=== PATIENT | female | born 1975 | race Caucasian/White ===

== ENCOUNTER 2017-02-12 10:31 | Emergency (ER) | payer OTHER, BC ==
[2017-02-12] MEDS ORDERED: KETOROLAC 60 MG/2 ML VIAL IM STA (11:51)
[2017-02-12] MEDS ORDERED: DEXAMETHASONE 10 MG/ML VIAL PO STA ×2 (11:51→13:46)
[2017-02-12] MEDS ORDERED: KETOROLAC 60 MG/2 ML VIAL ONE (12:03)
[2017-02-12] MEDS ORDERED: DEXAMETHASONE 10 MG/ML VIAL ONE (12:03)
[2017-02-12] MEDS ORDERED: CHERRY SYRUP 10 ML UDC PO ONE (12:04)
[2017-02-12] MEDS ORDERED: ONDANSETRON ODT 4 MG TABLET ONE (12:11)
[2017-02-12] MEDS ORDERED: ONDANSETRON ODT 4 MG TABLET TL STA (12:45)
== END 2017-02-12 13:02 | disposition home or self-care (01) ==
DX: M54.12 Radiculopathy, cervical region (principal); Z87.891 Personal history of nicotine dependence
CPT/HCPCS: 96372; 99282; 99283; A9270; Q0162

== ENCOUNTER 2017-02-14 10:11 | Emergency (ER) | payer OTHER, BC ==
[2017-02-14] MEDS ORDERED: KETOROLAC 60 MG/2 ML VIAL IM STA (13:21)
[2017-02-14] MEDS ORDERED: KETOROLAC 60 MG/2 ML VIAL ONE (13:22)
[2017-02-14] MEDS ORDERED: DEXAMETHASONE 10 MG/ML VIAL PO STA (13:45)
[2017-02-14] MEDS ORDERED: CHERRY SYRUP 10 ML UDC PO ONE (13:50)
[2017-02-14] MEDS ORDERED: DEXAMETHASONE 10 MG/ML VIAL ONE (13:50)
[2017-02-14] MEDS ORDERED: oxyCOD/ACETAMIN 5 MG/325 MG TABLET PO STA ×2 (16:13→19:37)
[2017-02-14] MEDS ORDERED: oxyCOD/ACETAMIN 5 MG/325 MG TABLET PO ONE (16:15)
[2017-02-14] MEDS ORDERED: oxyCODONE 5 MG TABLET PO STA (20:10)
[2017-02-14] MEDS ORDERED: oxyCODONE 5 MG TABLET ONE (20:12)
== END 2017-02-14 22:32 | disposition short-term general hospital (02) ==
DX: M50.123 Cervical disc disorder at C6-C7 level with radiculopathy (principal); Z87.891 Personal history of nicotine dependence
CPT/HCPCS: 72141; 96372; 99284; 99285; A9270

== ENCOUNTER 2017-02-14 22:35 | Outpatient (CLI) | payer OTHER, BC | END 2017-02-14 22:36 | disposition short-term general hospital (02) | DX: M54.12 Radiculopathy, cervical region (principal) | CPT/HCPCS: A0425; A0428 ==

== ENCOUNTER 2017-08-23 10:47 | Outpatient (CLI) | payer OTHER, BC | END 2017-08-23 10:48 | disposition EMS.NT | LOC: EMS 10:47 | PROVIDERS: ATTEND Surgery | DX: M54.2 Cervicalgia (principal); V49.40XA Driver injured in collision with unspecified motor vehicles in traffic accident, initial encounter; Y92.413 State road as the place of occurrence of the external cause ==

== ENCOUNTER 2017-08-23 12:46 | Emergency (ER) | payer OTHER, BC ==
[2017-08-23] MEDS ORDERED: oxyCOD/ACETAMIN 5 MG/325 MG TABLET PO STA (13:07)
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
[2017-08-23] MEDS ORDERED: oxyCOD/ACETAMIN 5 MG/325 MG TABLET PO ONE (13:36)
--- NOTE | 2017-08-23 14:06 | CT Preliminary Report ---
Exam: CT Cervical Spine W/O IMPRESSION: 1. Postop fusion C6-C7 which is intact with anatomic alignment. 2. No acute findings [facility] SITE ID: [id number]
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
[2017-08-23 14:19] VITALS: BP 136/91
== END 2017-08-23 14:19 | disposition home or self-care (01) ==
LOC: ED 12:46
DX: S16.1XXA Strain of muscle, fascia and tendon at neck level, initial encounter (principal); V53.5XXA Driver of pick-up truck or van injured in collision with car, pick-up truck or van in traffic accident, initial encounter; Y92.488 Other paved roadways as the place of occurrence of the external cause; Z87.891 Personal history of nicotine dependence; Z98.1 Arthrodesis status; R03.0 Elevated blood-pressure reading, without diagnosis of hypertension
CPT/HCPCS: 72125; 99283; A9270

== ENCOUNTER 2018-07-13 09:27 | Outpatient (CLI) | payer OTHER, BC ==
[2018-07-13] MEDS ORDERED: SIMETHICONE/SOD BICARB/CIT AC 1 EACH PACKET PO ONE (11:12)
[2018-07-13] MEDS ORDERED: BARIUM SULFATE 148 GM POWDER PO ONE (11:12)
[2018-07-13] MEDS ORDERED: BARIUM SULFATE 135 ML BOTTLE PO ONE (11:12)
--- NOTE | 2018-07-16 14:08 | XRAY Report ---
Procedure Date: 07/13/2018 Accession Number: [id number] / [id number] Procedure: FL - Esophogram CPT Code: FULL RESULT: EXAM: BARIUM ESOPHAGRAM EXAM DATE: 07/13/2018 11:10 AM. CLINICAL HISTORY: Cervical dysphagia, GERD, DOI 02/01/2017. COMPARISONS: None. TECHNIQUE: Routine double contrast esophagram. Fluoroscopy Time: 2 minutes 11 seconds. FINDINGS: Swallowing Mechanism: Normal. No tracheal aspiration or penetration. Esophageal Motility: Disorganized peristaltic stripping wave. Mucosa: Normal. No ulcerations or masses. Gastroesophageal Junction: Normal. No hernia, stricture, or significant reflux. Other: None. IMPRESSION: Disorganized esophageal peristalsis. [facility]
== END 2018-07-13 09:28 | disposition home or self-care (01) ==
LOC: DI 09:27
PROVIDERS: ATTEND Otolaryngology Facial Plastic Surgery
DX: R13.19 Other dysphagia (principal); K21.9 Gastro-esophageal reflux disease without esophagitis; K44.9 Diaphragmatic hernia without obstruction or gangrene
CPT/HCPCS: 74220; A9270

== ENCOUNTER 2019-03-04 16:48 | Outpatient (CLI) | payer OTHER ==
--- NOTE | 2019-03-05 14:13 | MRI Report ---
Reason: RACIDULOPATHY, CERVICAL REGION Procedure Date: 03/04/2019 Accession Number: [id number] / [id number] Procedure: MRI - Cervical Spine W/O CPT Code: FULL RESULT: MRI CERVICAL SPINE WITHOUT CONTRAST INDICATION: 43-year-old female. History of previous cervical spine surgery. Still having pain 2 years postoperative. Right second digit is numb. Concern for radiculopathy. TECHNIQUE: 1. Sagittal STIR, T1 and T2. 2. Axial T1, T2 and T2*. COMPARISON: 1. Cervical spine MRI 02/14/[address] 08/23/2017. FINDINGS: There has been interval surgery since the MRI study 02/14/2017. New changes of anterior cervical diskectomy and fusion (ACDF) are demonstrated at C6-C7. There is magnetic susceptibly artifact from the anterior plate and anchoring corpus screws that limit assessment of the fusion; however, there probably is solid interbody fusion at the C6-C7 level. Vertebral alignment is unremarkable. There is absence of normal T2 signal from the C2-C3 and C5-C6 disks confirming disk degeneration. The C3-C4, C4-C5 and C7-T1 disks remain relatively well hydrated. The cervical disk space heights appear preserved throughout. The marrow signal intensity is unremarkable. Axial images: C2-C3: No disk herniation or spinal stenosis. The neural foramina appear widely patent. C3-C4: No disk herniation or spinal stenosis. Tiny right-sided uncovertebral osteophyte without associated foraminal encroachment. C4-C5: No disk herniation or spinal stenosis. The neural foramina appear widely patent bilaterally. C5-C6: Again demonstrated is a tiny posterior protrusion. It causes minimal mass effect on the thecal sac. No spinal stenosis. There is minor uncovertebral hypertrophy with the minimal foraminal narrowing. C6-C7: The spinal canal is widely patent. The neural foramina now appear widely patent. C7-T1: No disk herniation or spinal stenosis. Degenerative facet arthrosis with minimal bony hypertrophy. No significant foraminal narrowing. T1-T2: No disk herniation. No spinal canal or foraminal stenosis. The spinal cord appears to have normal signal intensity throughout. Incidentally noted is polypoid mucosal thickening in the right maxillary sinus. No air-fluid level is demonstrated to confirm active maxillary sinusitis. IMPRESSION: 1. There is evidence of interval ACDF at C6-C7 since previous MRI study of 02/14/2017. Postoperatively, the spinal canal appears widely patent. In addition, there has been interval resolution of previously demonstrated left foraminal stenosis. The neural foramina appear widely patent at this time. 2. Again demonstrated are degenerative changes in the disk at C5-C6. There is a shallow posterior protrusion that causes minimal mass effect on the thecal sac. No spinal stenosis or spinal cord impingement. 3. Minor degenerative changes are seen elsewhere in the cervical spine without associated spinal stenosis or significant foraminal narrowing. No evidence of neural impingement.
== END 2019-03-04 16:49 | disposition home or self-care (01) ==
LOC: DI 16:48
PROVIDERS: ATTEND Preventive Medicine Occupational Medicine
DX: M50.122 Cervical disc disorder at C5-C6 level with radiculopathy (principal)
CPT/HCPCS: 72141

== ENCOUNTER 2019-07-23 10:28 | Emergency (ER) | payer OTHER ==
[2019-07-23 10:34] VITALS: BP 135/85
--- NOTE | 2019-07-23 10:41 | ED Physician Documentation ---
PD HPI UPPER EXT INJURY - Stated complaint Stated Complaint: SHOULDER PX - Chief complaint Chief Complaint: Ext Problem - History obtained from History obtained from: Patient - History of Present Illness Location: Right, Shoulder (scapular area mostly with radiation to axillary area. Hurts with shoulder movement but the shoulder itself is not hurting.) Type of injury: No: Fall, Twist Where injury occurred: Home Timing - onset: How many days ago (2-3, onset of pain with steady worsening.) Timing - duration: Days Timing - details: Gradual onset, Still present Worsened by: Moving, Palpating Associated symptoms: No: Weakness, Numbness, Swelling Similar symptoms before: Has not had sx before (Has prior neck pain with cervical fusion and so has had radiculitis of the right arm. She had not had any pain in this distribution previously.) Review of Systems Constitutional: denies: Fever, Chills Nose: denies: Rhinorrhea / runny nose, Congestion Throat: denies: Sore throat Cardiac: denies: Chest pain / pressure Respiratory: denies: Dyspnea, Cough PD PAST MEDICAL HISTORY - Past Medical History Cardiovascular: None Respiratory: None Neuro: None Endocrine/Autoimmune: None - Past Surgical History Past Surgical History: Yes - Present Medications Home Medications: Ambulatory Orders Medication Instructions Recorded Confirmed Cyclobenzaprine [Flexeril] 10 mg PO TID PRN #20 tablet 02/12/17 02/14/17 Hydrocodone/Acetaminophen [Vicodin 1 - 2 tab QID PRN 02/12/17 02/14/17 5-300 mg Tablet] RX: HYDROcod/ACETAM 5/325 [[place] 1 - 2 ea PO Q6H PRN #15 tablet 02/12/17 02/14/17 5/325] dexAMETHasone [Decadron] 4 mg PO DAILY #5 tablet 02/12/17 02/14/17 Carisoprodol [Soma] 350 mg PO Q8HR PRN #10 tablet 08/23/17 Oxycodone HCl/Acetaminophen 1 - 2 tab PO Q4H PRN #10 tablet 08/23/17 [Percocet 5-325 mg Tablet] Oxycodone HCl/Acetaminophen 1 - 2 each PO Q6H PRN #25 tablet 07/23/19 [Percocet 5-325 mg Tablet] dexAMETHasone [Decadron] 4 mg PO DAILY #5 tablet 07/23/19 - Allergies Allergies/Adverse Reactions: Allergies Allergy/AdvReac Type Severity Reaction Status Date / Time metronidazole [From Flagyl] Allergy Intermediate Rash Verified 07/23/19 10:34 Sulfa (Sulfonamide Allergy Intermediate makes me Verified 07/23/19 10:34 Antibiotics) feel really hot - Social History Does the pt smoke?: No Smoking Status: Former smoker Does the pt drink ETOH?: No Does the pt have substance abuse?: No - Immunizations Immunizations are current?: Yes - POLST Patient has POLST: No PD ED PE NORMAL - Vitals Vital signs reviewed: Yes - General General: Alert and oriented X 3, Well developed/nourished, Other (Appears in pain. She is guarding motion of the right shoulder as it causes pain in the scapula area.) - HEENT HEENT: Atraumatic, Pharynx benign - Neck Neck: Supple, no meningeal sign, No adenopathy - Cardiac Cardiac: RRR, No murmur - Respiratory Respiratory: Clear bilaterally - Abdomen Abdomen: Normal bowel sounds, Soft, Non tender - Back Back: No CVA TTP, No spinal TTP (Tender in the right parathoracic muscles and soft tissue and in the scapular area. There is no axillary nodes. There is no rash. There is no redness or skin sores.) - Derm Derm: Normal color, Warm and dry - Extremities Extremities: No deformity - Neuro Neuro: Alert and oriented X 3, No motor deficit, No sensory deficit, Normal speech Results - Vitals Vitals: Vital Signs - 24 hr 07/23/19 10:30 Temperature 36.3 C L Heart Rate 57 L Respiratory 19 Rate Blood Pressure 135/85 H O2 Saturation 95 Oxygen O2 Source Room air - Rads (name of study) thoracic CT Radiology: Prelim report reviewed (no acute abnormality to account for the pain), See rad report PD MEDICAL DECISION MAKING - ED course Complexity details: reviewed results, re-evaluated patient, considered differential (Scapular and axillary pain for a few days. There is tenderness in the area. There is no rash at this time. Chest x-ray appears normal. Consider the possibility of early shingles so watch for rash. Otherwise consider neuropathic pain from thoracic pinched nerve. Imaging did not show any acute abnormality to account for it.), d/w patient Departure - Departure Disposition: 01 Home, Self Care Clinical Impression: Right-sided thoracic back pain Qualifiers: Chronicity: acute Qualified Code(s): M54.6 - Pain in thoracic spine Condition: Stable Record reviewed to determine appropriate education?: Yes Instructions: ED Neck Back Pain General Follow-Up: MICKEY ALICEA [Primary Care Provider] - Prescriptions: dexAMETHasone [Decadron] 4 mg PO DAILY #5 tablet Oxycodone HCl/Acetaminophen [Percocet 5-325 mg Tablet] 1 - 2 each PO Q6H PRN #25 tablet PRN Reason: pain Comments: Use the sling as needed for comfort to support the shoulder and reduce motion there. Use ibuprofen or your etodolac anti-inflammatory regularly for the next week. Add Decadron steroid anti-inflammatory daily for the next 5 days. To that add Tylenol or oxycodone as needed for pain. The CT scan of the chest did not show any obvious cause for the pain. It certainly can still be nerve root irritation or muscular and would not show on the test per se. We are treating it as such with the above medications. Follow-up with your primary care in the next week, call for an appointment. Discharge Date/Time: 07/23/19 13:20
[2019-07-23] MEDS ORDERED: NAPROXEN 250 MG TABLET PO STA (10:59)
[2019-07-23] MEDS ORDERED: DEXAMETHASONE 10 MG/ML VIAL PO STA (10:59)
[2019-07-23] MEDS ORDERED: MORPHINE 10 MG/ML VIAL IM STA (10:59)
[2019-07-23] MEDS ORDERED: CHERRY SYRUP 10 ML UDC PO ONE (10:59)
--- NOTE | 2019-07-23 11:37 | CT Report ---
Reason: right scapular, thoracic, chest pain with moving Procedure Date: 07/23/2019 Accession Number: [id number] / [id number] Procedure: CT - CHEST WO CPT Code: FULL RESULT: EXAM: CT CHEST EXAM DATE: 07/23/2019 11:21 AM. CLINICAL HISTORY: Right scapular, thoracic, chest pain with moving. COMPARISONS: None. TECHNIQUE: Routine helical CT imaging was performed through the chest. IV contrast: None. Reconstructions: Coronal and sagittal. In accordance with CT protocol optimization, one or more of the following dose reduction techniques were utilized for this exam: automated exposure control, adjustment of mA and/or KV based on patient size, or use of iterative reconstructive technique. FINDINGS: Lungs/Pleura: No nodules, bronchial thickening, consolidation, or edema. Pulmonary vasculature is normal. No pericardial or pleural effusion. No pneumothorax. Mediastinum: Normal. No adenopathy or masses. The heart and great vessels are normal. Bones: Anterior fusion of C6 and C7. Bones are otherwise normal. Visualized Abdomen: Unremarkable. Other: None. IMPRESSION: Normal chest CT. [facility]
[2019-07-23] MEDS ORDERED: oxyCODONE 5 MG TABLET PO STA (12:30)
== END 2019-07-23 13:20 | disposition home or self-care (01) ==
LOC: ED 10:28
DX: M54.6 Pain in thoracic spine (principal); Z87.891 Personal history of nicotine dependence
CPT/HCPCS: 71250; 96372; 99283; 99284; A9270

== ENCOUNTER 2019-08-16 13:29 | Emergency (ER) | payer OTHER ==
[2019-08-16] MEDS ORDERED: MORPHINE 10 MG/ML VIAL IVP STA (14:43)
--- NOTE | 2019-08-16 14:45 | ED Physician Documentation ---
PD HPI CHEST PAIN - Stated complaint Stated Complaint: BREAST PX - Chief complaint Chief Complaint: Cardiac - History obtained from History obtained from: Patient - History of Present Illness Timing - onset: Other (44-year-old woman who for the last month has been dealing with intermittent right sided chest pain. She describes it as a pain radiating from the mid thoracic spine around to her right breast. She describes it is tearing and ripping. It is worse with any motion or with deep breathing. She was seen here last month for same and had excellent relief with morphine. A CT of the chest without contrast was done basically negative except for some spinal issues.) Review of Systems Constitutional: denies: Fever, Chills Cardiac: reports: Chest pain / pressure. denies: Palpitations, Pedal edema, Calf pain Respiratory: denies: Dyspnea, Cough PD PAST MEDICAL HISTORY - Past Medical History Past Medical History: Yes Cardiovascular: None Respiratory: None Neuro: None Endocrine/Autoimmune: None - Past Surgical History Past Surgical History: Yes Ortho: Other - Present Medications Home Medications: Ambulatory Orders Medication Instructions Recorded Confirmed Cyclobenzaprine [Flexeril] 10 mg PO TID PRN #20 tablet 02/12/17 02/14/17 Hydrocodone/Acetaminophen [Vicodin 1 - 2 tab QID PRN 02/12/17 02/14/17 5-300 mg Tablet] RX: HYDROcod/ACETAM 5/325 [[place] 1 - 2 ea PO Q6H PRN #15 tablet 02/12/17 02/14/17 5/325] dexAMETHasone [Decadron] 4 mg PO DAILY #5 tablet 02/12/17 02/14/17 Carisoprodol [Soma] 350 mg PO Q8HR PRN #10 tablet 08/23/17 Oxycodone HCl/Acetaminophen 1 - 2 tab PO Q4H PRN #10 tablet 08/23/17 [Percocet 5-325 mg Tablet] Oxycodone HCl/Acetaminophen 1 - 2 each PO Q6H PRN #25 tablet 07/23/19 [Percocet 5-325 mg Tablet] dexAMETHasone [Decadron] 4 mg PO DAILY #5 tablet 07/23/19 Lidocaine Patch 5% [Lidoderm Patch] 1 patch TOP DAILY PRN #10 patch 08/16/19 Oxycodone HCl/Acetaminophen 1 - 2 each PO Q6H PRN #14 tablet 08/16/19 [Percocet 5-325 mg Tablet] - Allergies Allergies/Adverse Reactions: Allergies Allergy/AdvReac Type Severity Reaction Status Date / Time metronidazole [From Flagyl] Allergy Intermediate Rash Verified 08/16/19 13:32 Sulfa (Sulfonamide Allergy Intermediate makes me Verified 08/16/19 13:32 Antibiotics) feel really hot - Social History Does the pt smoke?: No Smoking Status: Never smoker Does the pt drink ETOH?: No Does the pt have substance abuse?: No - Immunizations Immunizations are current?: Yes - POLST Patient has POLST: No PD ED PE NORMAL - Vitals Vital signs reviewed: Yes - General General: Alert and oriented X 3, Other (She is laying left lateral decubitus and appears uncomfortable) - HEENT HEENT: PERRL, EOMI - Neck Neck: Supple, no meningeal sign, No bony TTP - Cardiac Cardiac: RRR, No murmur - Respiratory Respiratory: No respiratory distress, Clear bilaterally - Abdomen Abdomen: Non tender - Back Back: Other (Mild tenderness of the musculature of the right side of the thoracic back, no rash) - Derm Derm: Normal color, Warm and dry - Extremities Extremities: No edema, No calf tenderness / cord - Neuro Neuro: Alert and oriented X 3, Normal speech Results - Vitals Vitals: Vital Signs - 24 hr 08/16/19 08/16/19 08/16/19 13:32 14:57 15:56 Temperature 36.5 C Heart Rate 97 52 L 58 L Respiratory 18 14 16 Rate Blood Pressure 150/92 H 138/91 H 147/73 H O2 Saturation 97 96 98 08/16/19 16:58 Temperature Heart Rate 60 Respiratory 20 Rate Blood Pressure 132/94 H O2 Saturation 98 Oxygen O2 Source Room air - EKG (time done) 1336 Rate: Rate (enter#) (75) Rhythm: NSR [place]: Normal Intervals: Normal CT QRS: Normal Ischemia: Normal ST segments Computer interpretation: Agree with computer - Labs Labs: Laboratory Tests 08/16/19 08/16/19 08/16/19 14:50 14:50 14:50 WBC 6.6 RBC 4.56 Hgb 14.4 Hct 42.9 MCV 94.1 MCH 31.6 H MCHC 33.6 RDW 13.2 Plt Count 214 MPV 11.0 H Neut # (Auto) 4.0 Lymph # (Auto) 1.9 Pepin # (Auto) 0.6 Eos # (Auto) 0.2 Baso # (Auto) 0.0 Absolute Nucleated RBC 0.00 Nucleated RBC % 0.0 Sodium 141 Potassium 3.9 Chloride 105 Carbon Dioxide 25 Anion Gap 11.0 BUN 14 Creatinine 0.8 Estimated GFR (MDRD) 79 L Glucose 91 Calcium 9.4 Total Bilirubin 0.6 AST 20 ALT 20 Alkaline Phosphatase 59 Troponin I High Sens 2.3 Total Protein 7.6 Albumin 4.3 Globulin 3.3 Albumin/Globulin Ratio 1.3 Lipase 26 - Rads (name of study) CTA Chest Radiology: EMP read contemporaneously (nromal) PD MEDICAL DECISION MAKING - ED course ED course: 44-year-old woman presents with recurrent right-sided chest pain that seems musculoskeletal. That said she describes it as a ripping and therefore CTA of the chest was done to evaluate for vascular pathology which was negative. She was pain-free here after morphine. Departure - Departure Disposition: 01 Home, Self Care Clinical Impression: Chest wall pain, Atypical chest pain Condition: Good Record reviewed to determine appropriate education?: Yes Instructions: ED Chest Pain Atypical Unkn Cause, ED Strain Chest Wall Follow-Up: [facility] [Provider Group] - Within 3 Days Prescriptions: Lidocaine Patch 5% [Lidoderm Patch] 1 patch TOP DAILY PRN #10 patch PRN Reason: pain Oxycodone HCl/Acetaminophen [Percocet 5-325 mg Tablet] 1 - 2 each PO Q6H PRN #14 tablet PRN Reason: pain Comments: Call your doctor to arrange a follow-up appointment, make the next available appointment. In the interim, return anytime if worse or if new symptoms develop. Your blood pressure was elevated today on check into the emergency department. This does not mean that you have hypertension, it is a common phenomenon to come to the emergency department and have elevated blood pressure. I recommend that you see your primary care physician within the week to have it rechecked when you are feeling better. Do not drink or drive while taking narcotic pain medication. Note that many narcotic pain relievers also contain Tylenol/acetaminophen. Please ensure that your total dose of acetaminophen from all sources does not exceed 3 g (3000 mg) per day. You may get constipated while on this medication. Take a stool softener such as Colace twice a day while you are on it. Also add an awte-rpt-kgcaqdi laxative such as senna or MiraLAX on any day that you do not have a bowel movement. If you received a narcotic pain medication or sedative while in the emergency department, do not drive for the next 24 hours. Discharge Date/Time: 08/16/19 17:01
[2019-08-16 15:03] LABS: BASOPHILS % (AUTO) 0.6 %; EOSINOPHILS # (AUTO) 0.2 10^3/uL (0.0-0.7); EOSINOPHILS % (AUTO) 2.3 %; HGB - HEMOGLOBIN 14.4 g/dL (12.0-16.0); LYMPHOCYTES # (AUTO) 1.9 10^3/uL (1.5-3.5); LYMPHOCYTES % (AUTO) 28.6 %; MEAN CORPUSCULAR HEMOGLOBIN 31.6 pg (27.0-31.0); MEAN CORPUSCULAR HGB CONC 33.6 g/dL (32.0-36.0); MEAN CORPUSCULAR VOLUME 94.1 fL (81.0-99.0); MONOCYTES # (AUTO) 0.6 10^3/uL (0.0-1.0); MONOCYTES % (AUTO) 8.3 %; NEUTROPHILS % (AUTO) 59.9 %; PLT - PLATELET COUNT 214 10^3/uL (130-450); RED BLOOD COUNT 4.56 10^6/uL (4.20-5.40); RED CELL DISTRIBUTION WIDTH 13.2 % (12.0-15.0); WHITE BLOOD COUNT 6.6 x10^3/uL (4.8-10.8)
[2019-08-16] MEDS ORDERED: IOVERSOL 320 100 ML VIAL IVP ONE (15:07)
[2019-08-16 15:17] LABS: ALBUMIN 4.3 g/dL (3.2-5.5); ALBUMIN/GLOBULIN RATIO 1.3 (1.0-2.2); BILIRUBIN,TOTAL 0.6 mg/dL (0.2-1.0); CALCIUM 9.4 mg/dL (8.5-10.3); CREATININE 0.8 mg/dL (0.4-1.0); TOTAL PROTEIN 7.6 g/dL (6.7-8.2)
--- NOTE | 2019-08-16 16:38 | CT Report ---
Reason: Aorta protocol, ripping chest pain Procedure Date: 08/16/2019 Accession Number: [id number] / [id number] Procedure: CT - ANGIO CHEST W/WO CPT Code: FULL RESULT: EXAM: CTA CHEST EXAM DATE: 08/16/2019 03:44 PM. CLINICAL HISTORY: Aorta protocol, ripping chest pain.. COMPARISON: CHEST W/O 07/23/2019 11:15 AM. TECHNIQUE: Prior to and following intravenous administration of OPTI 320 80ML, multiplanar 3D/MIP reconstruction of the thoracic aorta was performed. In accordance with CT protocol optimization, one or more of the following dose reduction techniques were utilized for this exam: automated exposure control, adjustment of mA and/or KV based on patient size, or use of iterative reconstructive technique. FINDINGS: Vascular Structures: Normal. No aneurysm, dissection, or significant atherosclerotic disease of the thoracic aorta. The visualized pulmonary arteries are within normal limits. Lungs/Pleura: No consolidation, nodules, or edema. No effusions or pneumothorax. Mediastinum: Normal. No cardiac enlargement or adenopathy. Upper Abdomen: Unremarkable. Other: None. IMPRESSION: Normal chest CT angiogram. No aneurysm or dissection. RADIA
[2019-08-16 16:59] VITALS: BP 132/94
== END 2019-08-16 17:01 | disposition home or self-care (01) ==
LOC: ED 13:29
DX: R07.89 Other chest pain (principal); R03.0 Elevated blood-pressure reading, without diagnosis of hypertension
CPT/HCPCS: 36415; 71275; 80053; 83690; 84484; 85025; 93005; 96374; 99284; Q9967

== ENCOUNTER 2021-02-25 10:18 | Emergency (ER) | payer MEDICAID, OTHER ==
--- NOTE | 2021-02-25 10:36 | ED Physician Documentation ---
PD HPI DYSPNEA - Stated complaint Stated Complaint: SOB/LIGHTHEADED - Chief complaint Chief Complaint: General - History obtained from History obtained from: Patient - History of Present Illness Timing - onset: How many days ago (2) Timing - onset during: Light activity Timing - duration: Days (2) Timing - details: Gradual onset, Still present Inciting event(s): URI Improved by: Rest Worsened by: Exertion Associated symptoms: Cough. No: Wheezing, Chest pain / discomfort, Palpitations, Diaphoresis Similar symptoms before: Has not had sx before Recently seen: Not recently seen - Additional information Additional information: 45-year-old female with a history of a cervical fusion has developed a cough and congestion about 3 weeks ago she seemed to improve with this and then she had a recurrence of her symptoms she was coughing up some yellow-green phlegm about 2 days ago and then this resolved. This morning the patient is feeling weak and lightheaded. She is brought to the hospital by her who notes that she is short of breath if she exerts herself at all. The patient denies any chest pain states that this does not feel like she is having difficulty getting a full deep breath that she is just having to breathe faster. Review of Systems Constitutional: denies: Fever Eyes: denies: Decreased vision Ears: denies: Ear pain Nose: reports: Congestion. denies: Rhinorrhea / runny nose Throat: denies: Sore throat Cardiac: denies: Chest pain / pressure, Palpitations Respiratory: reports: Dyspnea, Cough. denies: Wheezing GI: denies: Nausea Skin: denies: Rash Neurologic: denies: Generalized weakness, Focal weakness, Numbness PD PAST MEDICAL HISTORY - Past Medical History Cardiovascular: None Respiratory: None Neuro: None Endocrine/Autoimmune: None - Past Surgical History Past Surgical History: Yes Ortho: Other - Present Medications Home Medications: Ambulatory Orders Medication Instructions Recorded Confirmed Duloxetine HCl [Cymbalta] 60 mg BID 02/25/21 02/25/21 Omeprazole 20 mg BID 02/25/21 02/25/21 Pregabalin [Lyrica] 50 mg BID 02/25/21 02/25/21 - Allergies Allergies/Adverse Reactions: Allergies Allergy/AdvReac Type Severity Reaction Status Date / Time metronidazole [From Flagyl] Allergy Intermediate Rash Verified 02/25/21 10:33 Sulfa (Sulfonamide Allergy Intermediate makes me Verified 02/25/21 10:33 Antibiotics) feel really hot - Social History Does the pt smoke?: No Smoking Status: Never smoker Does the pt drink ETOH?: No Does the pt have substance abuse?: No - Immunizations Immunizations are current?: Yes - POLST Patient has POLST: No PD ED PE NORMAL - Vitals Vital signs reviewed: Yes - General General: Alert and oriented X 3, No acute distress, Well developed/nourished - HEENT HEENT: Atraumatic, PERRL, EOMI, Ears normal, Moist mucous membranes, Pharynx benign, Dentition benign - Neck Neck: Supple, no meningeal sign, No bony TTP - Cardiac Cardiac: RRR, No murmur - Respiratory Respiratory: No respiratory distress, Clear bilaterally - Abdomen Abdomen: Soft, Non tender - Back Back: No CVA TTP, No spinal TTP - Derm Derm: Normal color, Warm and dry, No rash - Extremities Extremities: No deformity, No edema - Neuro Neuro: Alert and oriented X 3, 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, No motor deficit, No sensory deficit, Normal speech Eye Opening: Spontaneous Motor: Obeys Commands Verbal: Oriented GCS Score: 15 - Psych Psych: Normal mood, Normal affect Results - Vitals Vitals: Vital Signs - 24 hr 02/25/21 02/25/21 02/25/21 10:23 10:52 11:17 Temperature 37 C Heart Rate 87 79 68 Respiratory 22 28 H 14 Rate Blood Pressure 160/103 H 144/103 H 142/101 H O2 Saturation 100 100 95 02/25/21 12:16 Temperature Heart Rate 61 Respiratory 12 Rate Blood Pressure 155/97 H O2 Saturation 95 Oxygen O2 Source Room air - Labs Labs: Laboratory Tests 02/25/21 02/25/21 02/25/21 10:45 10:45 11:00 WBC 8.0 RBC 5.13 Hgb 15.8 Hct 44.9 MCV 87.5 MCH 30.8 MCHC 35.2 RDW 13.0 Plt Count 225 MPV 10.9 H Neut # (Auto) 4.8 Lymph # (Auto) 2.5 Cross # (Auto) 0.5 Eos # (Auto) 0.1 Baso # (Auto) 0.1 Absolute Nucleated RBC 0.00 Nucleated RBC % 0.0 D-Dimer Sodium 139 Potassium 3.8 Chloride 107 Carbon Dioxide 19 L Anion Gap 13.0 BUN 16 Creatinine 0.8 Estimated GFR (MDRD) 78 L Glucose 112 H Calcium 9.8 Total Bilirubin 1.0 AST 21 ALT 23 Alkaline Phosphatase 46 Total Protein 8.0 Albumin 4.4 Globulin 3.6 Albumin/Globulin Ratio 1.2 Lipase 26 Urine Color YELLOW Urine Clarity HAZY Urine pH 7.0 Ur Specific [place] 1.010 Urine Protein NEGATIVE Urine Glucose (UA) NEGATIVE Urine Ketones NEGATIVE Urine Occult Blood TRACE-INTA Urine Nitrite NEGATIVE Urine Bilirubin NEGATIVE Urine Urobilinogen 0.2 (NORMAL) Ur Leukocyte Esterase NEGATIVE Urine RBC 0-5 Urine WBC 0-3 Ur Squamous Epith Cells MANY Squamous H Urine Bacteria Few Ur Microscopic Review INDICATED Urine Culture Comments NOT INDICATED Urine HCG, Qual NEGATIVE 02/25/21 11:15 WBC RBC Hgb Hct MCV MCH MCHC RDW Plt Count MPV Neut # (Auto) Lymph # (Auto) Cross # (Auto) Eos # (Auto) Baso # (Auto) Absolute Nucleated RBC Nucleated RBC % D-Dimer 214.5 Sodium Potassium Chloride Carbon Dioxide Anion Gap BUN Creatinine Estimated GFR (MDRD) Glucose Calcium Total Bilirubin AST ALT Alkaline Phosphatase Total Protein Albumin Globulin Albumin/Globulin Ratio Lipase Urine Color Urine Clarity Urine pH Ur Specific [place] Urine Protein Urine Glucose (UA) Urine Ketones Urine Occult Blood Urine Nitrite Urine Bilirubin Urine Urobilinogen Ur Leukocyte Esterase Urine RBC Urine WBC Ur Squamous Epith Cells Urine Bacteria Ur Microscopic Review Urine Culture Comments Urine HCG, Qual - Rads (name of study) chest Radiology: Prelim report reviewed (Impression: No acute cardiopulmonary pathology.), EMP read indepedently, See rad report Procedures - IVC sono (time) 1055 Bedside IVC sono: IVC measures (cm) (0.90), IVC collapsed c insp (cm) (complete), Dehydration (est 2 liter deficit) PD MEDICAL DECISION MAKING - ED course Complexity details: reviewed results, re-evaluated patient, considered differential, d/w patient ED course: Female with recent URI appears to have resolved her symptoms of URI and then has developed shortness of breath and lightheadedness. Here in the emergency department she is found to be dehydrated on interrogation the inferior vena cava and she is administered intravenous fluid. She has improvement in her shortness of breath with the intravenous fluid. Her work-up which included a D-dimer chest x-ray electrolytes were all normal. She had no evidence of an infiltrate on her chest x-ray. She did have a complaint of production of yellow and green phlegm and states that that seemed to have gotten better 2 days ago. I suspect the majority of her complaint with lightheadedness dizziness and shortness of breath is related to the dehydration. Departure - Departure Disposition: 01 Home, Self Care Clinical Impression: Dehydration Condition: Stable Instructions: ED Dehydration Follow-Up: [facility] [Provider Group] Comments: Today it appears that the symptoms that you are having with being lightheaded and short of breath are related to dehydration. This may be related to the recent URI you have an excessive breathing or use of too much caffeine as a diuretic. The diagnostic studies were performed on you were all negative and indicate a benign process. The level of dehydration you have is not benign and we have treated it aggressively with IV fluids. The expectation is that you continue to feel improved, continue to hydrate and resolve your symptoms. A COVID test is pending and this does not seem like COVID. Qurantine until your test results return.
[2021-02-25 11:01] LABS: BASOPHILS # (AUTO) 0.1 10^3/uL (0.0-0.1); BASOPHILS % (AUTO) 0.6 %; EOSINOPHILS # (AUTO) 0.1 10^3/uL (0.0-0.7); EOSINOPHILS % (AUTO) 1.5 %; HCT - HEMATOCRIT 44.9 % (37.0-47.0); HGB - HEMOGLOBIN 15.8 g/dL (12.0-16.0); LYMPHOCYTES # (AUTO) 2.5 10^3/uL (1.5-3.5); MEAN CORPUSCULAR HEMOGLOBIN 30.8 pg (27.0-31.0); MEAN CORPUSCULAR HGB CONC 35.2 g/dL (32.0-36.0); MEAN CORPUSCULAR VOLUME 87.5 fL (81.0-99.0); MEAN PLATELET VOLUME 10.9 fL (7.9-10.8); MONOCYTES # (AUTO) 0.5 10^3/uL (0.0-1.0); MONOCYTES % (AUTO) 6.5 %; NEUTROPHILS # (AUTO) 4.8 10^3/uL (1.5-6.6); PLT - PLATELET COUNT 225 10^3/uL (130-450); RED BLOOD COUNT 5.13 10^6/uL (4.20-5.40)
[2021-02-25] MEDS ORDERED: SODIUM CHLORIDE 0.9% 1,000 ML IV STA ×2 (11:05→12:13)
[2021-02-25 11:14] LABS: BILIRUBIN,URINE NEGATIVE (NEGATIVE); GLUCOSE, URINE (UA) NEGATIVE (NEGATIVE); HCG UR QUAL NEGATIVE; KETONES,URINE (UA) NEGATIVE (NEGATIVE); LEUKOCYTE ESTERASE, URINE NEGATIVE (NEGATIVE); NITRITE,URINE NEGATIVE (NEGATIVE); OCCULT BLOOD,URINE TRACE-INTA (NEGATIVE); PROTEIN,URINE NEGATIVE (NEGATIVE); UROBILINOGEN,URINE 0.2 (NORMAL) E.U./dL (NORMAL)
[2021-02-25 11:15] LABS: CLARITY,URINE HAZY (CLEAR)
[2021-02-25 11:16] LABS: ALBUMIN 4.4 g/dL (3.2-5.5); ALBUMIN/GLOBULIN RATIO 1.2 (1.0-2.2); CALCIUM 9.8 mg/dL (8.5-10.3); CREATININE 0.8 mg/dL (0.4-1.0); POTASSIUM 3.8 mmol/L (3.5-5.0)
[2021-02-25 11:21] LABS: BACTERIA,URINE Few /HPF (None Seen); RBC,URINE 0-5 /HPF (0-5); SQUAMOUS EPITHELIAL CELL,UR MANY Squamous (<= Few); WBC,URINE 0-3 /HPF (0-5)
--- NOTE | 2021-02-25 11:33 | XRAY Report ---
PROCEDURE: Chest 1 View X-Ray INDICATIONS: soa TECHNIQUE: One view of the chest was acquired. COMPARISON: Chest CT dated 08/16/2019 and 07/23/2019. FINDINGS: Surgical changes and devices: Fusion hardware in lower cervical spine is seen.. Lungs and pleura: No pleural effusions or pneumothorax. Lungs are clear. Mediastinum: Mediastinal contours appear normal. Heart size is normal. Bones and chest wall: No suspicious bony lesions. Overlying soft tissues appear unremarkable. IMPRESSION: No acute cardiopulmonary pathology. Reviewed by: Robson Bhagat MD on 02/25/2021 11:32 AM PDT Approved by: Robson Bhagat MD on 02/25/2021 11:32 AM PDT Station ID: [id number]
[2021-02-25] MEDS ORDERED: DEXAMETHASONE 10 MG/ML VIAL IVP STA (12:08)
[2021-02-25 14:05] VITALS: BP 136/94
--- OUTSIDE RECORDS SUMMARY | 2021-03-03 00:50 | EXTERNAL MEDICAL SUMMARY RPT | Continuity of Care Document ---
:1975 Demographics Phone Unavailable Preferred Language Micronesian Marital Status Unknown Yazdanism Affiliation Unknown Race Unknown Ethnic Group Unknown Author Organization [place] Address [address] [phone] Phone Care Team Providers Name Role Phone Abraham Unavailable Unavailable Problems date description facility [id number] Contact with and (suspected) exposure t o [address] [id number] Arthrodesis status [facility] [id number] Radiculopathy, cervical region [facility] Medications date description facility [id number] Diazepam 10 MG Oral Tablet [facility] ital Procedures date description facility 20201221 [facility] date description facility 20201222 [facility] Vital Signs date measurement value source 20201221 heart_rate 92 /min 20201221 temperature_metric 36.22 C 20201221 temperature_standard 97.2 F date measurement value source 20201222 BP_diastolic 78 mm[Hg] 20201222 BP_systolic 129 mm[Hg] 20201222 heart_rate 81 /min 20201222 respiration_rate 16 /min 20201222 temperature_metric 36.06 C 20201222 temperature_standard 96.9 F Social History date description facility [id number]
== END 2021-02-25 14:24 | disposition home or self-care (01) ==
LOC: ED 10:18
DX: E86.0 Dehydration (principal); R05 Cough; Z20.822 Contact with and (suspected) exposure to COVID-19; Z98.1 Arthrodesis status
CPT/HCPCS: 36415; 80053; 81001; 81003; 81025; 83690; 85025; 85379; 87086; 96361; 96374; 99283

== ENCOUNTER 2021-02-28 22:01 | Emergency (ER) | payer MEDICAID, OTHER ==
--- NOTE | 2021-02-28 22:48 | ED Physician Documentation ---
PD HPI DYSPNEA - Stated complaint Stated Complaint: SOA/DIZZY - Chief complaint Chief Complaint: Neuro - History obtained from History obtained from: Patient - History of Present Illness Timing - onset: How many hours ago (since about 8 pm (2 hours ago).) Timing - onset during: Light activity (standing up and head movement.) Timing - duration: Hours (2) Timing - details: Abrupt onset (onset feling vertigo room spinning when got up from sitting this evening. Has had URI symptoms for 5-6 days. Seen in ER 4 days ago with weakness and URI symptoms. Given IV fluids and lightheaded improved. Did not have the dizziness at that time per se.) Inciting event(s): URI Improved by: Rest Worsened by: Other (movement) Associated symptoms: Fever, Cough, Other (has had congestion and nasal/sinus pressure. No change in hearing.). No: Wheezing, Chest pain / discomfort Recently seen: Emergency Dept (few days ago with URI symptoms and weakess. Given IV fluids. Had COVID test done, did not get results yet.) Review of Systems Constitutional: reports: Chills, Myalgias, Fatigue Ears: denies: Loss of hearing, Drainage/discharge, Tinnitus/ringing Nose: reports: Rhinorrhea / runny nose, Congestion Throat: reports: Sore throat Cardiac: denies: Chest pain / pressure, Palpitations Respiratory: reports: Cough GI: reports: Nausea. denies: Abdominal Pain, Vomiting, Diarrhea Skin: denies: Rash Neurologic: denies: Altered mental status, Headache PD PAST MEDICAL HISTORY - Past Medical History Cardiovascular: None Respiratory: None Neuro: None Endocrine/Autoimmune: None Psych: Depression - Past Surgical History Past Surgical History: Yes Ortho: Other - Present Medications Home Medications: Ambulatory Orders Medication Instructions Recorded Confirmed Duloxetine HCl [Cymbalta] 60 mg BID 02/25/21 03/01/21 Omeprazole 20 mg BID 02/25/21 03/01/21 Pregabalin [Lyrica] 50 mg BID 02/25/21 03/01/21 Cetirizine [ZyrTEC] 10 mg PO BID #15 tablet 03/01/21 Meclizine HCl [Antivert] 1 tablet PO Q6H PRN #30 tab 03/01/21 dexAMETHasone [Decadron] 4 mg PO DAILY #5 tablet 03/01/21 - Allergies Allergies/Adverse Reactions: Allergies Allergy/AdvReac Type Severity Reaction Status Date / Time metronidazole [From Flagyl] Allergy Intermediate Rash Verified 02/28/21 22:13 Sulfa (Sulfonamide Allergy Intermediate makes me Verified 02/28/21 22:13 Antibiotics) feel really hot - Social History Does the pt smoke?: No Smoking Status: Never smoker Does the pt drink ETOH?: No Does the pt have substance abuse?: No - Immunizations Immunizations are current?: Yes - POLST Patient has POLST: No PD ED PE NORMAL - Vitals Vital signs reviewed: Yes - General General: Alert and oriented X 3, Well developed/nourished, Other (appears uncomfortable and holding head still. ) - HEENT HEENT: PERRL, EOMI (mild nystagmus to the left) - Neck Neck: Supple, no meningeal sign, No adenopathy - Cardiac Cardiac: RRR, No murmur - Respiratory Respiratory: Clear bilaterally - Abdomen Abdomen: Soft, Non tender - Derm Derm: Normal color, Warm and dry, No rash - Extremities Extremities: No tenderness to palpate - Neuro Neuro: Alert and oriented X 3, No motor deficit, No sensory deficit, Normal speech Results - Vitals Vitals: Vital Signs - 24 hr 02/28/21 03/01/21 03/01/21 22:05 00:10 00:33 Temperature 37.2 C 36.8 C Heart Rate 73 63 64 Respiratory 16 15 16 Rate Blood Pressure 161/117 H 139/82 H 138/78 H O2 Saturation 100 96 97 03/01/21 00:42 Temperature 36.5 C Heart Rate 83 Respiratory 14 Rate Blood Pressure 138/78 H O2 Saturation 98 Oxygen O2 Source Room air - Labs Labs: Laboratory Tests 02/28/21 23:27 Sodium 139 Potassium 3.5 Chloride 105 Carbon Dioxide 22 Anion Gap 12.0 BUN 15 Creatinine 1.1 H Estimated GFR (MDRD) 54 L Glucose 102 H Calcium 9.5 Magnesium 2.1 Total Bilirubin 0.6 AST 19 ALT 23 Alkaline Phosphatase 43 Total Protein 6.8 Albumin 4.1 Globulin 2.7 Albumin/Globulin Ratio 1.5 PD MEDICAL DECISION MAKING - ED course Complexity details: reviewed old records (recent ER visit for this, with normal labs, d-dimer, and COVID test. Has vertigo with head movement and standing up. Presume inner ear inflammation related to the URI. ), re-evaluated patient (improved with Meclizine. ), considered differential, d/w patient Departure - Departure Disposition: 01 Home, Self Care Clinical Impression: Vertigo Upper respiratory infection Qualifiers: URI type: unspecified URI Qualified Code(s): J06.9 - Acute upper respiratory infection, unspecified Condition: Stable Record reviewed to determine appropriate education?: Yes Instructions: ED Vertigo Unspecified Prescriptions: Meclizine HCl [Antivert] 1 tablet PO Q6H PRN #30 tab PRN Reason: Vertigo dexAMETHasone [Decadron] 4 mg PO DAILY #5 tablet Cetirizine [ZyrTEC] 10 mg PO BID #15 tablet Comments: Stay adequately hydrated. I think your symptoms relate to some pressure and fluid buildup in the inner ear causing some vertigo. This likely relates to the upper respiratory infection you have had recently. Your Covid test from the other day is negative. I would suggest trying cetirizine antihistamine twice daily for the next week and Decadron steroid for inflammation of the upper respiratory area and the inner ear as directed. To this add meclizine motion sickness medicine every 6 hours if needed for the dizziness/vertigo. Recheck if not improved well over the next few days and resolved by 3 to 5 days. Discharge Date/Time: 03/01/21 00:45
[2021-02-28] MEDS ORDERED: MECLIZINE 12.5 MG TABLET PO STA (23:17)
[2021-02-28] MEDS ORDERED: CHERRY SYRUP 10 ML UDC PO ONE (23:39)
[2021-02-28] MEDS ORDERED: DEXAMETHASONE 10 MG/ML VIAL PO STA (23:39)
[2021-02-28] MEDS ORDERED: CETIRIZINE 10 MG TABLET PO STA (23:39)
[2021-02-28 23:46] LABS: ALBUMIN 4.1 g/dL (3.2-5.5); ALBUMIN/GLOBULIN RATIO 1.5 (1.0-2.2); BILIRUBIN,TOTAL 0.6 mg/dL (0.2-1.0); CALCIUM 9.5 mg/dL (8.5-10.3); CREATININE 1.1 mg/dL (0.4-1.0); MAGNESIUM 2.1 mg/dL (1.7-2.8); POTASSIUM 3.5 mmol/L (3.5-5.0); TOTAL PROTEIN 6.8 g/dL (6.7-8.2)
[2021-03-01 00:34] VITALS: BP 138/78
--- OUTSIDE RECORDS SUMMARY | 2021-03-03 02:49 | EXTERNAL MEDICAL SUMMARY RPT | Continuity of Care Document ---
:1975 Demographics Phone Unavailable Preferred Language Norwegian Marital Status Unknown Buddhist Affiliation Unknown Race Unknown Ethnic Group Unknown Author Organization [place] Address [address] [phone] Phone Care Team Providers Name Role Phone Abraham Unavailable Unavailable Problems date description facility [id number] Contact with and (suspected) exposure t o [address] [id number] Arthrodesis status [facility] 20201222 Radiculopathy, cervical region [facility] Medications date description facility 20201212 Diazepam 10 MG Oral Tablet [facility] ital Procedures date description facility 20201221 [facility] date description facility 20201222 [facility] Vital Signs date measurement value source 20201221 heart_rate 92 /min 20201221 temperature_metric 36.22 C 20201221 temperature_standard 97.2 F date measurement value source 20201222 BP_diastolic 78 mm[Hg] 20201222 BP_systolic 129 mm[Hg] 20201222 heart_rate 81 /min 20201222 respiration_rate 16 /min 20201222 temperature_metric 36.06 C 20201222 temperature_standard 96.9 F Social History date description facility [id number]
== END 2021-03-01 00:45 | disposition home or self-care (01) ==
LOC: ED 22:01
DX: R42 Dizziness and giddiness (principal); J06.9 Acute upper respiratory infection, unspecified
CPT/HCPCS: 36415; 80053; 83735; 93005; 99284; A9270

== ENCOUNTER 2021-03-22 09:54 | Outpatient (CLI) | payer MEDICAID ==
[2021-03-22 10:18] LABS: BASOPHILS % (AUTO) 0.4 %; EOSINOPHILS # (AUTO) 0.1 10^3/uL (0.0-0.7); EOSINOPHILS % (AUTO) 2.6 %; HCT - HEMATOCRIT 43.2 % (37.0-47.0); HGB - HEMOGLOBIN 14.6 g/dL (12.0-16.0); LYMPHOCYTES # (AUTO) 1.5 10^3/uL (1.5-3.5); LYMPHOCYTES % (AUTO) 31.8 %; MEAN CORPUSCULAR HGB CONC 33.8 g/dL (32.0-36.0); MEAN CORPUSCULAR VOLUME 91.7 fL (81.0-99.0); MEAN PLATELET VOLUME 10.6 fL (7.9-10.8); MONOCYTES # (AUTO) 0.4 10^3/uL (0.0-1.0); MONOCYTES % (AUTO) 7.7 %; NEUTROPHILS # (AUTO) 2.7 10^3/uL (1.5-6.6); NEUTROPHILS % (AUTO) 57.1 %; PLT - PLATELET COUNT 196 10^3/uL (130-450); RED BLOOD COUNT 4.71 10^6/uL (4.20-5.40); RED CELL DISTRIBUTION WIDTH 13.5 % (12.0-15.0); WHITE BLOOD COUNT 4.7 x10^3/uL (4.8-10.8)
[2021-03-22 10:38] LABS: ALBUMIN 4.5 g/dL (3.2-5.5); ALBUMIN/GLOBULIN RATIO 1.6 (1.0-2.2); ALKALINE PHOSPHATASE 42 IU/L (42-121); ALT ALANINE AMINOTRANSFERASE 20 IU/L (10-60); AST ASPARTATE AMINOTRANSFERASE 16 IU/L (10-42); BUN - BLOOD UREA NITROGEN 17 mg/dL (6-20); CALCIUM 9.3 mg/dL (8.5-10.3); CARBON DIOXIDE - CO2 24 mmol/L (21-32); CHLORIDE 107 mmol/L (101-111); CHOL/HDL RATIO 2.5 (<4.4); CHOLESTEROL 196 mg/dL; CREATININE 0.7 mg/dL (0.4-1.0); GFR - MDRD 91 (>89); GLUCOSE 107 mg/dL (70-100); HDL CHOLESTEROL 77 mg/dL; LDL CHOLESTEROL,CALCULATED 111 mg/dL; LDL/HDL RATIO 1.4 (<4.4); SODIUM 142 mmol/L (135-145); TOTAL PROTEIN 7.4 g/dL (6.7-8.2); TRIGLYCERIDES 41 mg/dL; VLDL CHOLESTEROL 8 mg/dL
[2021-03-22 10:50] LABS: THYROID STIMULATING HORMONE 0.45 uIU/mL (0.34-5.60)
== END 2021-03-22 09:55 | disposition home or self-care (01) ==
LOC: LAB 09:54
PROVIDERS: ATTEND Physician Assistant
DX: I10 Essential (primary) hypertension (principal); Z79.899 Other long term (current) drug therapy; J30.2 Other seasonal allergic rhinitis; Z83.3 Family history of diabetes mellitus; Z82.49 Family history of ischemic heart disease and other diseases of the circulatory system; F33.9 Major depressive disorder, recurrent, unspecified; R13.10 Dysphagia, unspecified
CPT/HCPCS: 36415; 80053; 80061; 82306; 83721; 84443; 85025

== ENCOUNTER 2021-08-13 14:03 | Outpatient (CLI) | payer MEDICAID ==
--- NOTE | 2021-08-13 14:35 | XRAY Report ---
PROCEDURE: Foot 3 View RT INDICATIONS: HEEL PAIN, RIGHT TECHNIQUE: 3 views of the foot were acquired. COMPARISON: Right foot radiographs 07/19/2016 FINDINGS: Bones: No acute fractures or dislocations. No suspicious bony lesions. A plantar calcaneal entheso phyte is present. Soft tissues: No suspicious soft tissue calcifications. IMPRESSION: No acute osseous abnormality. Moderate plantar calcaneal spur. Reviewed by: Sánchez Florentino MD on 08/13/2021 2:33 PM PDT Approved by: Sánchez Florentino MD on 08/13/2021 2:33 PM PDT Station ID: [id number]
== END 2021-08-13 14:04 | disposition home or self-care (01) ==
LOC: DI.S 14:03
PROVIDERS: ATTEND Physician Assistant
DX: M77.31 Calcaneal spur, right foot (principal)

== ENCOUNTER 2021-09-23 10:55 | Outpatient (CLI) | payer MEDICAID ==
--- NOTE | 2021-09-30 02:21 | XRAY Report ---
PROCEDURE: Calcaneus RT INDICATIONS: HEEL PAIN, RIGHT TECHNIQUE: Two views of the calcaneus were acquired. Images became available for interpretation on 09/29/2021. COMPARISON: X-ray foot 09/15/2021, 08/13/2021 FINDINGS: Bones: No fractures or dislocations. No suspicious bony lesions. Calcaneal spur is present. Soft tissues: No suspicious calcifications. Achilles tendon appears normal. IMPRESSION: No visualized acute fracture or dislocation. However, occult injury cannot be excluded. Recommend beata rt interval imaging follow-up in 7-10 days as clinically indicated for additional evaluation. Reviewed by: Crystal Bah MD on 09/30/2021 12:57 AM PDT Approved by: Crystal Bah MD on 09/30/2021 12:57 AM PDT Station ID: [id number]
--- NOTE | 2021-09-30 10:02 | XRAY Report ---
PROCEDURE: Foot 3 View RT INDICATIONS: RIGHT HEEL PAIN TECHNIQUE: 3 views of the foot were acquired. COMPARISON: 08/13/2021 FINDINGS: Bones: No fractures or dislocations. Mild fifth MTP bunion deformity. Moderate-sized plantar calcane al spur. No suspicious bony lesions. Soft tissues: No tibiotalar joint effusion. Achilles tendon appears normal. IMPRESSION: 1. No significant change compared to the prior study. 2. Mild fifth MTP bunion deformity. 3. Moderate plantar calcaneal spur. Reviewed by: Neena Brooks MD on 09/30/2021 10:00 AM PDT Approved by: Neena Brooks MD on 09/30/2021 10:00 AM PDT Station ID: [id number]
== END 2021-09-23 10:56 | disposition home or self-care (01) ==
LOC: DI.N 10:55
PROVIDERS: ATTEND Physician Assistant
DX: M79.671 Pain in right foot (principal); M21.611 Bunion of right foot; M77.31 Calcaneal spur, right foot

== ENCOUNTER 2022-09-27 11:03 | Outpatient (CLI) | payer MEDICAID ==
[2022-09-27 11:19] LABS: BASOPHILS % (AUTO) 0.4 %; EOSINOPHILS # (AUTO) 0.1 10^3/uL (0.0-0.7); EOSINOPHILS % (AUTO) 1.3 %; HCT - HEMATOCRIT 42.4 % (37.0-47.0); LYMPHOCYTES # (AUTO) 2.2 10^3/uL (1.5-3.5); LYMPHOCYTES % (AUTO) 30.1 %; MEAN PLATELET VOLUME 10.7 fL (7.9-10.8); MONOCYTES # (AUTO) 0.5 10^3/uL (0.0-1.0); NEUTROPHILS # (AUTO) 4.6 10^3/uL (1.5-6.6); NEUTROPHILS % (AUTO) 61.5 %; PLT - PLATELET COUNT 238 10^3/uL (130-450); RED BLOOD COUNT 4.82 10^6/uL (4.20-5.40); RED CELL DISTRIBUTION WIDTH 12.9 % (12.0-15.0); WHITE BLOOD COUNT 7.5 x10^3/uL (4.8-10.8)
[2022-09-27 11:43] LABS: ALBUMIN 4.2 g/dL (3.2-5.5); ALBUMIN/GLOBULIN RATIO 1.4 (1.0-2.2); ALKALINE PHOSPHATASE 55 IU/L (42-121); ALT ALANINE AMINOTRANSFERASE 22 IU/L (10-60); AST ASPARTATE AMINOTRANSFERASE 18 IU/L (10-42); BILIRUBIN,TOTAL 0.8 mg/dL (0.2-1.0); BUN - BLOOD UREA NITROGEN 15 mg/dL (6-20); CALCIUM 9.1 mg/dL (8.5-10.3); CARBON DIOXIDE - CO2 22 mmol/L (21-32); CHLORIDE 104 mmol/L (101-111); CHOL/HDL RATIO 3.8 (<4.4); CHOLESTEROL 194 mg/dL; CREATININE 0.7 mg/dL (0.4-1.0); GFR - MDRD 90 (>89); GLUCOSE 114 mg/dL (70-100); HDL CHOLESTEROL 51 mg/dL; LDL CHOLESTEROL,CALCULATED 121 mg/dL; LDL/HDL RATIO 2.4 (<4.4); POTASSIUM 3.9 mmol/L (3.5-5.0); SODIUM 136 mmol/L (135-145); TOTAL PROTEIN 7.3 g/dL (6.7-8.2); TRIGLYCERIDES 111 mg/dL; VLDL CHOLESTEROL 22 mg/dL
[2022-09-27 11:51] LABS: THYROID STIMULATING HORMONE 0.69 uIU/mL (0.34-5.60)
[2022-09-28 14:51] LABS: ESTIMATED AVERAGE GLUCOSE 117 mg/dL (70-100); HEMOGLOBIN A1c% 5.7 % (4.27-6.07)
== END 2022-09-27 11:04 | disposition home or self-care (01) ==
LOC: LAB 11:03
PROVIDERS: ATTEND Internal Medicine
DX: I10 Essential (primary) hypertension (principal); Z79.899 Other long term (current) drug therapy; R53.83 Other fatigue; R73.01 Impaired fasting glucose
CPT/HCPCS: 36415; 80053; 80061; 83036; 83721; 84443; 85025

== ENCOUNTER 2022-11-02 12:10 | Emergency (ER) | payer OTHER, MEDICAID ==
--- NOTE | 2022-11-02 12:52 | ED Physician Documentation ---
PD HPI SYNCOPE - Stated complaint Stated Complaint: FALL/BACK PX - Chief complaint Chief Complaint: Neuro - History obtained from History obtained from: Patient - History of Present Illness Witnessed: Witnessed (by her ) Timing - onset: How many hours ago (1) Duration: Seconds Preceding symptoms: Abdominal pain (had onset of cramping lower abd pain, like having to have bm only worse, and was on toilet for bm. Stood up and felt more lightheaded and then brief syncope. slumped to floor without notable injury. was nearby her.), Light headed Associated symptoms: Abdominal pain. No: Headache, Palpitations, Dyspnea, Nausea / vomiting Contributing factors: Noxious stimulae (was having lower abd cramping pain), Just stood up (from toilet). No: Recent med change, Decreased PO intake Injury occurred: No: Head injury, Neck injury Similar symptoms before: Has not had sx before Review of Systems Constitutional: denies: Fever, Chills Nose: denies: Rhinorrhea / runny nose, Congestion Throat: denies: Sore throat Cardiac: denies: Chest pain / pressure, Palpitations Respiratory: denies: Dyspnea, Cough GI: denies: Vomiting, Diarrhea, Bloody / black stool : denies: Dysuria Musculoskeletal: reports: Neck pain (upper thoracic area with herniated discs and is arranging disc injections with her pain specialist, hopefully in the next 1-2 weeks. has not had lumbar pains in the past.), Back pain (having some lumbar area pain since fainting episode.) Neurologic: denies: Focal weakness, Numbness, Altered mental status, Headache, Head injury PD PAST MEDICAL HISTORY - Past Medical History Cardiovascular: None Respiratory: None Neuro: None Endocrine/Autoimmune: None [employer]: None Psych: Depression Musculoskeletal: Chronic back pain (thoracic back) - Past Surgical History Past Surgical History: Yes Ortho: Other - Present Medications Home Medications: Ambulatory Orders Medication Instructions Recorded Confirmed Duloxetine HCl [Cymbalta] 60 mg BID 02/25/21 03/01/21 Omeprazole 20 mg BID 02/25/21 03/01/21 Pregabalin [Lyrica] 50 mg BID 02/25/21 03/01/21 Cetirizine [ZyrTEC] 10 mg PO BID #15 tablet 03/01/21 Meclizine HCl [Antivert] 1 tablet PO Q6H PRN #30 tab 03/01/21 dexAMETHasone [Decadron] 4 mg PO DAILY #5 tablet 03/01/21 Docusate Sodium 100Mg Capsule 100 mg PO DAILY #20 cap 11/02/22 [Colace 100Mg Capsule] Oxycodone HCl/Acetaminophen 1 each PO Q6H PRN #25 tablet 11/02/22 [Percocet 5-325 mg Tablet] dexAMETHasone [Decadron] 4 mg PO DAILY #7 tablet 11/02/22 - Allergies Allergies/Adverse Reactions: Allergies Allergy/AdvReac Type Severity Reaction Status Date / Time metronidazole [From Flagyl] Allergy Intermediate Rash Verified 11/02/22 12:27 Sulfa (Sulfonamide Allergy Intermediate makes me Verified 11/02/22 12:27 Antibiotics) feel really hot - Social History Does the pt smoke?: No Smoking Status: Never smoker Does the pt drink ETOH?: No Does the pt have substance abuse?: No - Immunizations Immunizations are current?: Yes - POLST Patient has POLST: No PD ED PE NORMAL - Vitals Vital signs reviewed: Yes - General General: Alert and oriented X 3, No acute distress, Well developed/nourished - HEENT HEENT: Moist mucous membranes, Pharynx benign - Neck Neck: Supple, no meningeal sign, No adenopathy - Cardiac Cardiac: RRR, No murmur - Respiratory Respiratory: Clear bilaterally - Abdomen Abdomen: Normal bowel sounds, Soft, Non tender, Non distended - Back Back: No CVA TTP, No spinal TTP - Derm Derm: Normal color, Warm and dry - Extremities Extremities: No edema, No calf tenderness / cord - Neuro Neuro: Alert and oriented X 3, No motor deficit, Normal speech Results - Vitals Vitals: Vital Signs - 24 hr 11/02/22 11/02/22 11/02/22 12:23 14:31 16:20 Temperature 36.3 C L Heart Rate 75 85 80 Respiratory 16 14 12 Rate Blood Pressure 118/79 120/84 H 135/80 H O2 Saturation 98 94 96 Oxygen O2 Source Room air - EKG (time done) 12:35 Rate: Rate (enter#) (66) Rhythm: NSR [place]: Normal Intervals: Normal [place] QRS: Normal Ischemia: Normal ST segments. No: ST elevation c/w ischemia, ST depression - Labs Labs: Laboratory Tests 11/02/22 11/02/22 11/02/22 12:50 12:50 12:50 WBC 10.5 RBC 4.72 Hgb 14.1 Hct 43.0 MCV 91.1 MCH 29.9 MCHC 32.8 RDW 13.8 Plt Count 200 MPV 10.7 Neut # (Auto) 9.0 H Lymph # (Auto) 0.4 L Lamb # (Auto) 0.8 Eos # (Auto) 0.0 Baso # (Auto) 0.0 Absolute Nucleated RBC 0.00 Nucleated RBC % 0.0 Sodium 138 Potassium 3.8 Chloride 102 Carbon Dioxide 24 Anion Gap 12.0 BUN 16 Creatinine 0.9 Estimated GFR (MDRD) 68 L Glucose 124 H Calcium 8.8 Total Bilirubin 0.4 AST 15 ALT 19 Alkaline Phosphatase 56 Troponin I High Sens < 2.3 L Total Protein 7.2 Albumin 3.9 Globulin 3.3 Albumin/Globulin Ratio 1.2 Lipase 28 Ethyl Alcohol < 5.0 - Rads (name of study) abd/pelvic cT Radiology: Prelim report reviewed (no acute findings), See rad report PD MEDICAL DECISION MAKING - ED course Complexity details: reviewed results, re-evaluated patient (feeling okay with some fluids and pain meds here. not lightheaded with getting up. ), considered differential (the fainting sounds vasovagal with onset of lightheaded while on toilet due to lower abd cramping, then faint when stood up. consider vascular process, divertulitis/ruptured, other abd process. ), d/w patient Departure - Departure Disposition: 01 Home, Self Care Clinical Impression: Lumbar pain, Discogenic thoracic pain, Abdominal cramping Syncope Qualifiers: Syncope type: vasovagal syncope Qualified Code(s): R55 - Syncope and collapse Condition: Stable Record reviewed to determine appropriate education?: Yes Instructions: ED Syncope Vasovagal Follow-Up: Isabela Li ARNP [Primary Care Provider] - Prescriptions: Docusate Sodium 100Mg Capsule [Colace 100Mg Capsule] 100 mg PO DAILY #20 cap dexAMETHasone [Decadron] 4 mg PO DAILY #7 tablet Oxycodone HCl/Acetaminophen [Percocet 5-325 mg Tablet] 1 each PO Q6H PRN #25 tablet PRN Reason: pain Comments: Your fainting episode sounds likely to have been a abnormal drop in blood pressure related to response of your abdominal cramping. No signs of acute abdominal process on your CT scan. Your low back appears normal on the CT scan as well. Use The CT scan was targeted towards your abdomen pelvis with the recent cramps and low back pain. It did not look at the upper spine per se. Visible up to T7 level did not show any obvious abnormalities. I presume you are disc problems are above that level. Your basic blood count and electrolytes are good. Stay well-hydrated. I would presume you would not likely have another fainting episode. Continue with your current medications. Add Decadron steroid anti-inflammatory daily for the next week to help with your back pain. Add Tylenol/acetaminophen 4 times daily for pain as well. Use Percocet every 6 hours if needed instead for worse pain. I sent your prescriptions to the [facility] pharmacy here in [place]. Follow-up with your back specialist hopefully next week if they are able to schedule that. I am prescribing a short course of narcotic pain medication for you. These are potentially dangerous and addictive medications that should be used carefully. These medications may constipate you. Take an [id number] stool softener such as docusate twice daily with plenty of water while taking these medications. If you go 24 hours without a bowel movement, take [id number] MiraLAX, per package instructions. Do not drink or drive while taking these medications. If you received narcotic or sedating medications while in the emergency department do not drive for 24 hours. Store this medication in a safe, secure place and out of reach of children. It is a violation of federal law to give or sell this medication to another pers on or to use in a manner other than prescribed. The ED will not refill narcotic prescriptions, including prescriptions lost or stolen. You can dispose of unwanted medications at the [facility]'s office or at several pharmacies such as [facility]. Discharge Date/Time: 11/02/22 16:21
[2022-11-02 12:56] LABS: BASOPHILS % (AUTO) 0.3 %; EOSINOPHILS % (AUTO) 0.3 %; HGB - HEMOGLOBIN 14.1 g/dL (12.0-16.0); LYMPHOCYTES # (AUTO) 0.4 10^3/uL (1.5-3.5); LYMPHOCYTES % (AUTO) 4.2 %; MEAN CORPUSCULAR HEMOGLOBIN 29.9 pg (27.0-31.0); MEAN CORPUSCULAR HGB CONC 32.8 g/dL (32.0-36.0); MEAN CORPUSCULAR VOLUME 91.1 fL (81.0-99.0); MEAN PLATELET VOLUME 10.7 fL (7.9-10.8); MONOCYTES # (AUTO) 0.8 10^3/uL (0.0-1.0); MONOCYTES % (AUTO) 7.2 %; NEUTROPHILS % (AUTO) 86.2 %; PLT - PLATELET COUNT 200 10^3/uL (130-450); RED BLOOD COUNT 4.72 10^6/uL (4.20-5.40); RED CELL DISTRIBUTION WIDTH 13.8 % (12.0-15.0); WHITE BLOOD COUNT 10.5 x10^3/uL (4.8-10.8)
[2022-11-02] MEDS ORDERED: SODIUM CHLORIDE 0.9% 1,000 ML IV STA (13:17)
[2022-11-02] MEDS ORDERED: KETOROLAC 15 MG/ML VIAL IVP STA (13:17)
[2022-11-02] MEDS ORDERED: HYDROmorphone 1 MG/ML CARPUJECT IVP STA ×2 (13:17→15:09)
[2022-11-02 13:19] LABS: ALBUMIN 3.9 g/dL (3.2-5.5); ALBUMIN/GLOBULIN RATIO 1.2 (1.0-2.2); ALKALINE PHOSPHATASE 56 IU/L (42-121); ALT ALANINE AMINOTRANSFERASE 19 IU/L (10-60); AST ASPARTATE AMINOTRANSFERASE 15 IU/L (10-42); BILIRUBIN,TOTAL 0.4 mg/dL (0.2-1.0); BUN - BLOOD UREA NITROGEN 16 mg/dL (6-20); CALCIUM 8.8 mg/dL (8.5-10.3); CARBON DIOXIDE - CO2 24 mmol/L (21-32); CHLORIDE 102 mmol/L (101-111); CREATININE 0.9 mg/dL (0.4-1.0); ETOH - ETHANOL < 5.0 mg/dL; GFR - MDRD 68 (>89); GLUCOSE 124 mg/dL (70-100); LIPASE 28 U/L (22-51); POTASSIUM 3.8 mmol/L (3.5-5.0); SODIUM 138 mmol/L (135-145); TOTAL PROTEIN 7.2 g/dL (6.7-8.2)
[2022-11-02] MEDS ORDERED: iohexoL-300 100 ML VIAL ONE (13:52)
[2022-11-02] MEDS ORDERED: DEXAMETHASONE 10 MG/ML VIAL IVP STA (15:09)
--- NOTE | 2022-11-02 15:12 | CT Report ---
PROCEDURE: ABDOMEN/PELVIS W INDICATIONS: low abd pain/syncope; fall and low back pain CONTRAST: 100ml Omnipaque 300 TECHNIQUE: After the administration of contrast, 5 mm thick sections acquired from the diaphragms to the symphy sis. 5 mm thick coronal and sagittal reformats were acquired. For radiation dose reduction, the fol lowing was used: automated exposure control, adjustment of mA and/or kV according to patient size. COMPARISON: None. FINDINGS: Image quality: Good Lower chest: Basal atelectasis. Mild to moderate hiatal hernia. Solid organs: Liver is unremarkable. Gallbladder is unremarkable. No pathologic dilation of the bilia ry tree or pancreatic duct. Spleen is unremarkable. No adrenal nodules. No hydronephrosis. Vessels and lymph nodes: Main portal vein is patent. No pathologic adenopathy by size criteria. No ab dominal aortic aneurysm. Bowel and peritoneum: No acute bowel obstruction. No convincing inflammatory changes. No pathologic a scites. No hemoperitoneum. Normal appendix. Body wall: No large hematoma or abscess. Tiny fat-containing umbilical hernia. Pelvis: Overall physiologic appearance of the reproductive organs on limited evaluation. Bladder is u nremarkable. Bones: No acute or suspicious osseous finding. IMPRESSION: No acute abdominopelvic pathology or evidence of traumatic injury. Other findings as abo ve. Reviewed by: Pete Martinez MD on 11/02/2022 3:10 PM PST Approved by: Pete Martinez MD on 11/02/2022 3:10 PM PST Station ID: [id number]
[2022-11-02 16:21] VITALS: BP 135/80
[2022-11-02] MEDS ORDERED: iohexoL-300 100 ML VIAL IVP ONE (16:34)
== END 2022-11-02 16:21 | disposition home or self-care (01) ==
LOC: ED 12:10
DX: R55 Syncope and collapse (principal); M51.34 Other intervertebral disc degeneration, thoracic region; M54.50 Low back pain, unspecified; R10.84 Generalized abdominal pain
CPT/HCPCS: 36415; 74177; 80053; 80320; 83690; 84484; 85025; 93005; 96374; 96375; 96376; 99283; 99284; J1170; Q9967

== ENCOUNTER 2023-06-26 13:45 | Outpatient (CLI) | payer MEDICAID ==
[2023-06-26 22:21] LABS: BACTERIAL VAGINOSIS DNA NEGATIVE (NEGATIVE); CANDIDA GLABRATA DNA NEGATIVE (NEGATIVE); CANDIDA GROUP DNA NEGATIVE (NEGATIVE); CANDIDA KRUSEI DNA NEGATIVE (NEGATIVE); TRICHOMONAS VAGINALIS DNA NEGATIVE (NEGATIVE)
== END 2023-06-26 14:00 | disposition home or self-care (01) ==
LOC: LAB.N 13:45
PROVIDERS: ATTEND Nurse Practitioner
DX: R35.0 Frequency of micturition (principal)
CPT/HCPCS: 81514

== ENCOUNTER 2023-11-07 16:46 | Outpatient (CLI) | payer MEDICAID ==
--- NOTE | 2023-11-08 09:19 | Ultrasound Report ---
PROCEDURE: Pelvic w/Transvaginal INDICATIONS: HEAVY MENSTRATION TECHNIQUE: Real-time scanning was performed of the pelvic organs, with image documentation. Additional endovagi nal scanning was necessary due to incomplete visualization of the adnexal and endometrial structures by transabdominal scanning. COMPARISON: None. FINDINGS: Uterus: Uterus is anteverted and normal in size at 5.7 x 3.9 x 4.4 cm. The myometrium is homogeneou s. The endometrium measures 10.2 mm in combined thickness. Heterogeneous endometrium. Ovaries: The right ovary measures 2.6 x 1.9 x 2.4 cm, with a calculated ovarian volume of 6.3 cc. Th ere is a 1.8 cm thick-walled cyst within the right ovary. The left ovary measures 2.7 x 1.5 x 3.1 cm, with a calculated ovarian volume of 6.7 cc. There is a 1.8 cm simple cyst within the left ovary with small daughter cyst. Less than 12 follicles can be seen in each ovary. No adnexal masses are seen. No cystic lesions measuring greater than 3 cm. Other: No pathologic free abdominal or pelvic fluid. IMPRESSION: 1.The endometrium is mildly prominent at 10 mm heterogeneous, may be secondary to phase of menstruati on, recommend clinical correlation. 2.Thick-walled cyst within the right ovary measuring 1.8 cm, may represent a corpus luteal cyst. Foll ow-up ultrasound can be obtained as clinically indicated. Reviewed by: Prem Narayan MD on 11/08/2023 9:17 AM PST Approved by: Prem Narayan MD on 11/08/2023 9:17 AM PST Station ID: [id number]
== END 2023-11-07 16:47 | disposition home or self-care (01) ==
LOC: DI 16:46
PROVIDERS: ATTEND Obstetrics & Gynecology
DX: N92.0 Excessive and frequent menstruation with regular cycle (principal); Z68.41 Body mass index [BMI] 40.0-44.9, adult; N83.201 Unspecified ovarian cyst, right side

== ENCOUNTER 2024-02-21 09:39 | Outpatient (CLI) | payer MEDICAID ==
[2024-02-21 09:54] LABS: BASOPHILS % (AUTO) 0.4 %; EOSINOPHILS # (AUTO) 0.1 10^3/uL (0.0-0.7); HCT - HEMATOCRIT 39.2 % (37.0-47.0); HGB - HEMOGLOBIN 12.7 g/dL (12.0-16.0); LYMPHOCYTES # (AUTO) 2.2 10^3/uL (1.5-3.5); LYMPHOCYTES % (AUTO) 30.1 %; MEAN CORPUSCULAR HEMOGLOBIN 28.7 pg (27.0-31.0); MEAN CORPUSCULAR HGB CONC 32.4 g/dL (32.0-36.0); MEAN CORPUSCULAR VOLUME 88.5 fL (81.0-99.0); MEAN PLATELET VOLUME 10.7 fL (7.9-10.8); MONOCYTES # (AUTO) 0.5 10^3/uL (0.0-1.0); MONOCYTES % (AUTO) 7.1 %; NEUTROPHILS # (AUTO) 4.3 10^3/uL (1.5-6.6); NEUTROPHILS % (AUTO) 60.1 %; PLT - PLATELET COUNT 250 10^3/uL (130-450); RED BLOOD COUNT 4.43 10^6/uL (4.20-5.40); RED CELL DISTRIBUTION WIDTH 13.6 % (12.0-15.0); WHITE BLOOD COUNT 7.2 x10^3/uL (4.8-10.8)
[2024-02-21 10:17] LABS: ALBUMIN/GLOBULIN RATIO 1.5 (1.0-2.2); ALKALINE PHOSPHATASE 48 IU/L (42-121); ALT ALANINE AMINOTRANSFERASE 19 IU/L (10-60); AST ASPARTATE AMINOTRANSFERASE 15 IU/L (10-42); BILIRUBIN,TOTAL 0.5 mg/dL (0.2-1.0); BUN - BLOOD UREA NITROGEN 17 mg/dL (6-20); CALCIUM 9.2 mg/dL (8.5-10.3); CARBON DIOXIDE - CO2 23 mmol/L (21-32); CHLORIDE 109 mmol/L (101-111); CHOL/HDL RATIO 3.1 (<4.4); CHOLESTEROL 159 mg/dL; CREATININE 0.8 mg/dL (0.6-1.3); GFR - MDRD 77 (>89); GLUCOSE 100 mg/dL (74-104); HDL CHOLESTEROL 51 mg/dL; LDL CHOLESTEROL,CALCULATED 89 mg/dL; LDL/HDL RATIO 1.7 (<4.4); POTASSIUM 3.9 mmol/L (3.5-4.5); SODIUM 138 mmol/L (135-145); TOTAL PROTEIN 6.7 g/dL (6.4-8.9); TRIGLYCERIDES 97 mg/dL (48-352); VLDL CHOLESTEROL 19 mg/dL
[2024-02-21 10:23] LABS: THYROID STIMULATING HORMONE 0.87 uIU/mL (0.34-5.60)
== END 2024-02-21 09:40 | disposition home or self-care (01) ==
LOC: LAB 09:39
PROVIDERS: ATTEND Registered Nurse
DX: Z13.228 Encounter for screening for other metabolic disorders (principal); Z13.220 Encounter for screening for lipoid disorders; Z13.29 Encounter for screening for other suspected endocrine disorder; Z13.0 Encounter for screening for diseases of the blood and blood-forming organs and certain disorders involving the immune mechanism
CPT/HCPCS: 36415; 80053; 80061; 83721; 84443; 85025

== ENCOUNTER 2024-08-14 10:18 | Outpatient (CLI) | payer MEDICAID ==
[2024-08-14 10:24] LABS: HCT - HEMATOCRIT 39.5 % (37.0-47.0); HGB - HEMOGLOBIN 13.1 g/dL (12.0-16.0); MEAN CORPUSCULAR HEMOGLOBIN 29.4 pg (27.0-31.0); MEAN CORPUSCULAR HGB CONC 33.2 g/dL (32.0-36.0); MEAN CORPUSCULAR VOLUME 88.8 fL (81.0-99.0); MEAN PLATELET VOLUME 11.4 fL (7.9-10.8); RED BLOOD COUNT 4.45 10^6/uL (4.20-5.40); RED CELL DISTRIBUTION WIDTH 13.1 % (12.0-15.0); WHITE BLOOD COUNT 6.6 x10^3/uL (4.8-10.8)
== END 2024-08-14 10:19 | disposition home or self-care (01) ==
LOC: LAB.WC 10:18
PROVIDERS: ATTEND Nurse Practitioner
DX: N92.0 Excessive and frequent menstruation with regular cycle (principal)
CPT/HCPCS: 36415; 82728; 85027